=== PATIENT | male | born 1985 | race Caucasian/White ===

== ENCOUNTER → 2020-03-27 13:18 | Outpatient (CLI) | payer OTHER, SELFPAY ==
--- NOTE | 2020-03-27 | DI.MRI.S_ITS ---
PROCEDURE: MR HEAD/BRAIN WO/W CON INDICATIONS: Multiple sclerosis TECHNIQUE: Noncontrast sagittal and axial FLAIR, axial and coronal T2 fast spin echo, axial VIBE, axial gradient echo, axial diffusion and ADC through the brain. After the administration of contrast, axial and coronal VIBE with fat saturation through the brain. COMPARISON: None. FINDINGS: Image quality: Excellent. CSF spaces: Ventricles are normal in size and shape. Basal cisterns are patent. No extra-axial fluid collections. Brain: No intracranial bleeds or mass effects. Guerra-white matter interface appears intact. There are numerous bilateral periventricular white matter signal changes, with Sky's finger appearance highly suspicious for demyelination No abnormal intracranial enhancement. Diffusion weighted images show no acute ischemic insults. Brainstem appears normal. Normal intravascular flow voids are present. Skull and face: Calvarial marrow signal is normal. Orbits appear normal. Sinuses: Sinuses and mastoids are clear except for a mucous retention cyst or polyp in the right maxillary antrum and mild left maxillary sinus disease. IMPRESSION: Numerous , bilateral white matter signal changes in keeping with demyelination. None of these demonstrate associated enhancement. Mild bilateral maxillary sinus disease. Dictated by: Anibal Galvin M.D. on 03/27/2020 at 14:44 Approved by: Anibal Galvin M.D. on 03/27/2020 at 14:47
== END ==
PROVIDERS: Referring Provider Psychiatry & Neurology Neurology; Visit Provider Psychiatry & Neurology Neurology
DX: G35 Multiple sclerosis (principal); J32.0 Chronic maxillary sinusitis
CPT/HCPCS: 70553; A9579

== ENCOUNTER → 2021-03-19 11:44 | Outpatient (CLI) | payer OTHER, SELFPAY ==
--- NOTE | 2021-03-19 11:47 | DI.MRI.S_ITS ---
PROCEDURE: MR HEAD/BRAIN WO/W CON INDICATIONS: Multiple sclerosis TECHNIQUE: Noncontrast axial T1 spin echo, axial T2 fast spin echo, sagittal and axial FLAIR, coronal T2 fast spin echo, axial gradient echo, axial diffusion and ADC through the brain. After the administration of contrast, axial and coronal 3D VIBE or T1 spin echo with fat saturation through the brain. COMPARISON: [facility], MR, MR HEAD/BRAIN WO/W CON, 03/27/2020, 13:26. FINDINGS: Image quality: Excellent. CSF Spaces: Basal cisterns are patent. No extra-axial fluid collections. Ventricles are normal in size and shape. Brain: No midline shift. No intracranial bleeds or masses. There is a mild degree of patchy high FLAIR signal within the colo cell, pericallosal, and periventricular white matter. There is a small focus of elevated FLAIR signal within the right cerebral peduncle, as before., No abnormal intracranial enhancement. The brainstem appears normal. Diffusion-weighted images demonstrate no acute ischemic insults. No chronic ischemic insults. Normal intravascular flow voids are present. Skull and face: Calvarial marrow is normal in signal. Orbits appear normal. Sinuses: Right maxillary sinus retention cyst. Mild bilateral ethmoid sinus mucosal thickening. Sinuses and mastoids otherwise appear clear. IMPRESSION: 1. No change in mild degree of white matter disease, which is in a distribution compatible with multiple sclerosis. 2. No acute process. No recent infarct. Dictated by: Argenis Hicks M.D. on 03/19/2021 at 13:30 Approved by: Argenis Hicks M.D. on 03/19/2021 at 13:33
== END ==
PROVIDERS: PCP Internal Medicine; Referring Provider Psychiatry & Neurology Neurology; Visit Provider Psychiatry & Neurology Neurology
DX: G35 Multiple sclerosis (principal)
CPT/HCPCS: 70553

== ENCOUNTER → 2022-04-02 13:09 | Outpatient (CLI) | payer OTHER, SELFPAY ==
--- NOTE | 2022-04-02 13:47 | DI.MRI.S_ITS ---
PROCEDURE: MR HEAD/BRAIN WO/W CON INDICATIONS: Multiple sclerosis TECHNIQUE: Noncontrast axial T1 spin echo, axial T2 fast spin echo, sagittal and axial FLAIR, coronal T2 fast spin echo, axial gradient echo, axial diffusion and ADC through the brain. After the administration of contrast, axial and coronal and sagittal 3D VIBE or T1 spin echo with fat saturation through the brain. COMPARISON: [facility], MR, MR HEAD/BRAIN WO/W CON, 03/19/2021, 11:53. FINDINGS: Image quality: Excellent. CSF Spaces: Basal cisterns are patent. No extra-axial fluid collections. Ventricles are normal in size and shape. Brain: No midline shift. No intracranial bleeds or masses. There is a mild degree of patchy high FLAIR signal within the colo cell, pericallosal, periventricular, and subcortical white matter, as well as the right katrina, in a configuration which is consistent with multiple sclerosis. No significant change compared to 03/19/2021. No abnormal intracranial enhancement. The brainstem appears normal. Diffusion-weighted images demonstrate no acute ischemic insults. No chronic ischemic insults. Normal intravascular flow voids are present. Skull and face: Calvarial marrow is normal in signal. Orbits appear normal. Sinuses: Air-fluid level within the right maxillary sinus. Mild bilateral maxillary sinus mucosal thickening. Moderate right and mild left ethmoid sinus mucosal thickening. Mastoids are clear. IMPRESSION: 1. No significant change in mild degree of white matter disease, compatible with multiple sclerosis. 2. Sinus disease. Dictated by: Argenis Hicks M.D. on 04/02/2022 at 13:56 Approved by: Argenis Hicks M.D. on 04/02/2022 at 13:58
== END ==
PROVIDERS: PCP Internal Medicine; Referring Provider Psychiatry & Neurology Neurology; Visit Provider Psychiatry & Neurology Neurology
DX: G35 Multiple sclerosis (principal); J32.8 Other chronic sinusitis
CPT/HCPCS: 70553